=== PATIENT | female | born 1955 | race Caucasian/White ===

== ENCOUNTER → 2018-12-24 | Outpatient (CLI) | payer BC ==
[~2018-12-24] MED LIST: ALPR.25 PO; BIEST/PROG TOP; DHEA50 MG PO; ESTRIOL VAG; FISH1000 PO; L-Lysine500 M1 PO; MAGNESIUM GLYCINATE PO; METO25ER PO; Multiple Vitam1 EAC1 PO; Requip0.5 MG PO; VITAMIN D35000 UNIT PO
== END ==
LOC: PLD 10:06 → LAB SHORT 10:06
DX: D48.5 Neoplasm of uncertain behavior of skin (principal)
CPT/HCPCS: 88305

== ENCOUNTER 2020-02-04 07:17 | Day surgery (SDC) | payer BC ==
[~2020-02-04] VITALS: Ht 167.6 cm; Wt 89.6 kg
[~2020-02-04 07:17] MED LIST changes: +Xanax0.5 MG PO
[2020-02-04] MEDS ORDERED: METO100ER PO (07:46)
== END 2020-02-04 09:10 | disposition home or self-care (01) ==
LOC: ORSCSDS 07:17
PROVIDERS: Surgery
PROC: 0DJD8ZZ Inspection of Lower Intestinal Tract, Via Natural or Artificial Opening Endoscopic (ICD-10-PCS; principal; 2020-02-04 08:30)
DX: R19.4 Change in bowel habit (principal); R10.31 Right lower quadrant pain; I10 Essential (primary) hypertension; Z80.0 Family history of malignant neoplasm of digestive organs; E66.9 Obesity, unspecified; Z68.32 Body mass index [BMI] 32.0-32.9, adult; Z79.899 Other long term (current) drug therapy
CPT/HCPCS: J2704; J7120